=== PATIENT | male | born 1945 | race Caucasian/White ===

== ENCOUNTER → 2020-01-19 | Outpatient (CLI) | payer OTHER | LOC: LAB 14:59 | PROVIDERS: ATTEND Ophthalmology | DX: Z01.812 Encounter for preprocedural laboratory examination (principal); Z20.828 Contact with and (suspected) exposure to other viral communicable diseases ==

== ENCOUNTER 2020-01-27 09:01 | Day surgery (SDC) | payer MEDICARE ==
[~2020-01-27] VITALS: Ht 180.3 cm; Wt 111.1 kg
[~2020-01-27 09:01] MED LIST: ASA81BEC PO; DILTIAZEM 24HR180 M1 PO; DOXAZOSIN MESYLA4 MG PO; LOVASTATIN40 MG PO; NITROSTAT0.4 MG SUBLING; PROTONIX40 M2 PO; WARFARIN SODIUM5 MG PO
[2020-01-27 11:27] VITALS: BP 138/73
[2020-01-27 11:49] LABS: INR 1.3; PROTIME 13.2 Seconds (9.3-11.4)
--- NOTE | 2020-01-31 06:23 | O ---
[facility] [place] [address] OPERATIVE REPORT Name: IVON STONE Room #: DEP [facility] M..#: [id number] Admission: 01/27/20 Attend Phys: Efren Cuenca MD Discharge: 01/27/20 Date of : 47 Report #: [id number] THIS REPORT FOR: cc: Physician not on staff Physician not on staff Efren Cuenca MD ~ CC: Dr. Chas Yeboah Physician staff CHAS Cuenca DATE OF SERVICE: 01/27/2020 PREOPERATIVE DIAGNOSIS: Irreversibly blinded left painful eye, status post expulsive choroidal hemorrhage, status post prior permanent lateral tarsorrhaphy. PROCEDURE: Enucleation of left eye with implantation of 16 mm Medpor sphere with muscles attached to implant, conjunctivoplasty, temporary tarsorrhaphy, reversal of permanent lateral tarsorrhaphy. SURGEON: Efren Cuenca MD CONSTRUCTION PROJECT MANAGER: None. ANESTHESIA: General. COMPLICATIONS: None. INDICATIONS FOR SURGERY: This pleasant 75-year-old gentleman has previously been treated with radiation for intractable trigeminal neuralgia. 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 That transplant failed and he subsequently was transplanted again. That transplant failed and he recently underwent revision of an ocular prosthetic device only to experience an expulsive choroidal hemorrhage during the procedure. He is now approximately 10 days after that event and presents for removal of the irreversibly blinded painful left eye. Informed consent was obtained to include but not limited to the potential risk for bleeding, infection, and the need for further surgery or treatment. DESCRIPTION OF PROCEDURE: The patient was taken to the operating room where general anesthesia was administered. The left socket was then anesthetized with Xylocaine with epinephrine mixed with equal parts of 0.75% Marcaine with Wydase. [address] [address] OPERATIVE REPORT Name: IVON STONE Room #: DEP [facility] Carmita#: [id number] Admission: 01/27/20 Attend Phys: Efren Cuenca MD Discharge: 01/27/20 Date of : 47 Report #: [id number] The case was challenging from the very good go because of the open globe with the suprachoroidal clot hanging out the corneal interface and his extensive left-sided periorbital ecchymoses, edema and inflammation. He was subsequently prepped and draped in the usual sterile fashion. He had previously had a permanent lateral tarsorrhaphy placed, this had to be removed to allow access to his globe. This was incised across the eyelid margin and drawn down to a smooth edge with a Marilin scissor. A lid speculum was placed. A 360-degree conjunctival peritomy was performed as best possible. The conjunctiva was extremely hemorrhagic and fibrotic from his prior hemorrhage. Hemostasis was achieved with diligent use of pinpoint monopolar cautery. The inferior and superior lateral oblique quadrants were bluntly dissected to allow access to the lateral rectus muscle, which was isolated on a muscle hook. A 5-0 Vicryl suture was then passed through its insertion with locking bites at each margin and then the muscle was transected from the globe. A 4-0 silk suture was then passed through the insertion of the lateral rectus to provide traction on the globe. The dissection was carried down in the subtenons plane to the inferior, medial and superior rectus muscles, isolating them as best possible on a muscle hook prior to transecting them from the globe. An extensive amount of scarring was present all the way around from the prior surgery and hemorrhage. The oblique muscles were identified and cut where they attached to the globe. The optic nerve was then clamped for 3 minutes on 3 consecutive occasions as best possible. The extreme amount of scarring in the retrobulbar space made it very difficult to tell exactly what structures are being clamped. The optic nerve was then cut with an enucleation scissor following which hemostasis was obtained with monopolar cautery. The socket did not look normal, likely because of all the fibrotic tissue from the hemorrhage. The decision was made to use a somewhat small adult implant. An 18 mm implant fit in the socket, but not without some tension on the incision. A 16 mm Medpor sphere was then vacuum aspirated with antibiotic irrigation solution and placed behind retrobulbar space. Posterior tenon were then closed over the implant with interrupted 5-0 Vicryl sutures. The medial and lateral rectus muscles were then attached to themselves with interrupted 5-0 Vicryl sutures. The superior and inferior rectus muscles were then advanced and attached to the medial and lateral rectus muscles with interrupted 5-0 Vicryl sutures. Anterior Tenon's were then closed with best possible with interrupted buried 5-0 and 6-0 Vicryl sutures. The conjunctiva was then undermined as best possible superolaterally to allow a conjunctival flap to be advanced and closed over the anterior Tenon closure. Hemostasis was then re-achieved. The conjunctiva was then closed with interrupted 6-0 Vicryl sutures. Erythromycin ophthalmic ointment was then placed on the incision and a medium vented conformer placed. Erythromycin ointment was then placed on top of the conformer. A temporary tarsorrhaphy was [facility] [address] [place] [address] OPERATIVE REPORT Name: IVON STONE Room #: DEP [facility].#: [id number] Admission: 01/27/20 Attend Phys: Efren Cuenca MD Discharge: 01/27/20 Date of : 47 Report #: [id number] fashioned from a short section of IV tubing and a double arm pass from a 5-0 nylon suture. It was placed at the junction of the medial two-thirds and lateral one-third of the eyelid margin. A Telfa pad was then placed on the eye followed by 2 eye pads, which were held in place with silk tape and Mastisol. The patient was subsequently transported to the recovery area having tolerated the procedures well with no anesthetic or operative complications being noted. <ELECTRONICALLY SIGNED> By: Efren Cuenca MD 01/31/20 0623 [id number] Efren Cuenca MD /nt
--- NOTE | 2020-02-01 17:07 | PATH ---
[facility] [address] [place] [address] PATHOLOGY RPT PROCEDURE Name: IVON DYKES Room #: DEP [facility] M.R.#: [id number] Admission: 01/27/20 Date of : 47 Discharge: 01/27/20 Report #: [id number] Path Case #: [id number] [facility] Accession Number: [id number] . 01 Material submitted: . eye - LEFT ORBITAL EYE, SUTURE AT LATERAL RECTUS. Modifiers: left . 01 Clinical history: . BLIND PAINFUL EYE . 02 Diagnosis: Eye, left orbital eye, enucleation: - Corneal surface showing marked ulceration along with granulation tissue, history of prosthetic cornea and blind painful eye. - Focal residual epithelium present showing neovascularization. - Circular defect identified grossly measuring 0.9 x 0.8 cm in the location of cornea. (IUV:pit 02/01/2020) QTP 02/01/2020 1624 Local . 02 Electronically signed: . Brandy Vo MD, Pathologist NPI- [id number] . 01 Gross description: . The specimen is received in formalin, labeled "Ivon Dykes, left orbital eye, suture at lateral rectus". Received is an enucleation specimen measuring 2.9 x 2.6 x 2.3 cm in greatest dimensions. There is an attached optic nerve stump measuring 0.4 cm in diameter by 0.1 cm in length. The cornea is absent. There is a circular defect at the location of the cornea measuring 0.9 x 0.8 cm. Sectioning reveals the vitreous chamber to be filled with a large amount of blood coagulum. The choroid layer is pale inman and smooth in appearance. Extensive examination of the specimen reveals no gross evidence of a prosthetic lens. No distinct nodules or lesions are noted grossly. A full thickness cross-section through the lateral rectus, to include the optic nerve stump, is submitted in cassette A1. (CAA; 01/31/2020) QA/[facility] 01/31/2020 1304 Local . 02 Pathologist provided ICD-10: H16.002 . 02 CPT . 106573 Specimen Comment: A courtesy copy of this report has been sent to [phone], [place] [address] PATHOLOGY RPT PROCEDURE Name: IVON DYKES Room #: DEP [facility] M.R.#: [id number] Admission: 01/27/20 Date of : 47 Discharge: 01/27/20 Report #: [id number] Path Case #: [id number] Specimen Comment: [id number] Specimen Comment: Report sent to / DR TORRES Performed at: [address], [place], [place] [id number] MD Kalpesh Beverly MD Phone: [phone] Performed at: [address] [id number] MD Brandy Vo MD Phone: [phone]
== END 2020-01-27 14:35 | disposition home or self-care (01) ==
LOC: OR 09:01 → TBA 09:11 → OR 10:48
PROVIDERS: ATTEND Ophthalmology
DX: H57.12 Ocular pain, left eye (principal); H54.40 Blindness, one eye, unspecified eye; H16.002 Unspecified corneal ulcer, left eye; I10 Essential (primary) hypertension; E78.5 Hyperlipidemia, unspecified; I48.91 Unspecified atrial fibrillation; K21.9 Gastro-esophageal reflux disease without esophagitis; Z98.890 Other specified postprocedural states; Z79.899 Other long term (current) drug therapy; Z79.01 Long term (current) use of anticoagulants; Z87.891 Personal history of nicotine dependence; Z85.038 Personal history of other malignant neoplasm of large intestine; Z79.82 Long term (current) use of aspirin
CPT/HCPCS: 50010; 50101; 50386; 50398; 51636; 51854; 53500; 56527; 56528; 56531; 62110; 62900; 64037; 70005